=== PATIENT | male | born 1950 | race Caucasian/White ===

== ENCOUNTER 2022-08-04 10:02 | Inpatient (IN) | payer OTHER ==
[~2022-08-04] VITALS: Ht 180.3 cm; Wt 104.3 kg
[2022-08-04 10:02] VITALS: BP_SYST 152
[2022-08-04] MEDS ORDERED: INSU100V9 SQ (10:19)
[2022-08-04] MEDS ORDERED: ASPI-1155 PO (10:19)
[2022-08-04] MEDS ORDERED: LISI10TA29 PO (10:19)
[2022-08-04] MEDS ORDERED: AMLO5TAB4 PO (10:19)
[2022-08-04] MEDS ORDERED: LOVA20TA2 PO (10:19)
[2022-08-04] MEDS ORDERED: INSU100V SQ (10:19)
[2022-08-04] MEDS ORDERED: MULT-1117 PO (10:19)
[2022-08-04 10:57] LABS: BASOPHILS # (AUTO) 0.1 K/uL (0.0-0.2); BASOPHILS % (AUTO) 0.4 % (0.0-2.0); EOSINOPHILS % (AUTO) 0.2 % (0.0-4.0); HEMATOCRIT 40.1 % (36-54); HEMOGLOBIN 14.1 g/dL (14.0-18.0); LYMPHOCYTES # (AUTO) 0.8 K/uL (1.0-5.5); LYMPHOCYTES % (AUTO) 4.8 % (20.5-51.5); MEAN CORPUSCULAR HEMOGLOBIN 34 pg (27-31); MEAN CORPUSCULAR HGB CONC 35 % (32-36); MEAN CORPUSCULAR VOLUME 98 fL (79.0-98.0); MONOCYTES # (AUTO) 1.7 K/uL (0.0-1.0); MONOCYTES % (AUTO) 9.7 % (1.7-9.3); NEUTROPHILS # (AUTO) 14.9 K/uL (1.8-7.7); NEUTROPHILS % (AUTO) 84.9 % (40.0-70.0); RED BLOOD CELL COUNT(AUTO) 4.09 MIL/uL (4.2-6.2); RED CELL DISTRIBUTION WIDTH 13.1 % (9.0-15.0); WHITE BLOOD COUNT (AUTO) 17.5 K/uL (4.8-10.8)
[2022-08-04 11:01] LABS: ANION GAP 13 (5-15); CALCIUM 9.3 mg/dL (8.4-11.0); CHLORIDE 101 mmol/L (98-107); CREATININE 1.46 mg/dL (0.55-1.30); GLUCOSE 194 mg/dL (70-99); UREA NITROGEN, BLOOD 30 mg/dL (8-21)
[2022-08-04 11:05] LABS: INR 1.1 (0.80-1.20); PROTHROMBIN TIME 11.5 SECS (9.5-12.5)
[2022-08-04 11:08] LABS: ALANINE AMINOTRANSFERASE 29 U/L (12-78); ALBUMIN 4.3 g/dL (3.4-4.8); ASPARTATE AMINOTRANSFERASE 38 U/L (10-37); TOTAL BILIRUBIN 1.4 mg/dL (0.0-1.0)
[2022-08-04 11:20] LABS: BILIRUBIN,URINE NEGATIVE (NEGATIVE); BLOOD, URINE 2+ (NEGATIVE); CLARITY/URINE CLEAR (CLEAR); COLOR,URINE YELLOW (YELLOW); GLUCOSE,URINE NEGATIVE (NEGATIVE); KETONES,URINE 1+ (NEGATIVE); LEUKOCYTE ESTERASE ,URINE NEGATIVE (NEGATIVE); NITRITE, URINE NEGATIVE (NEGATIVE); PH,URINE 5.5 (5.0-8.0); PROTEIN URINE 1+ (NEGATIVE); UROBILINOGEN,URINE 0.2 (0.2-1.0)
[2022-08-04 11:21] LABS: PLATELET COUNT (AUTO) 187 K/uL (130-430)
[2022-08-04 12:06] LABS: BACTERIA,URINE FEW /HPF (None Seen); RBC,URINE 20-50 /HPF (0-3); WBC,URINE 0-3 /HPF (0-3)
[2022-08-04 12:44] LABS: CKMB RELATIVE INDEX 1.1 (0.0-2.9); CREATINE KINASE MB 8.4 ng/mL (0-3.6)
[2022-08-04] MEDS ORDERED: D5W 1,000 ML IV PRN (13:00)
[2022-08-04] MEDS ORDERED: GLUCOSE (DEXTROSE) ORAL GEL -Adults PO PRN (13:00)
[2022-08-04] MEDS ORDERED: ONDANSETRON HCL 4 MG/2 ML VIAL IVP PRN (13:00)
[2022-08-04] MEDS ORDERED: MORPHINE 2 MG/ML INJ. SYRINGE IVP PRN (13:00)
[2022-08-04] MEDS ORDERED: DEXTROSE 50% JECT 50 ML DISP.SYRIN IVP PRN (13:00)
[2022-08-04 16:00] VITALS: BP_SYST 149
[2022-08-04] MEDS: NACL 0.9% 1,000 ML IV SCH ×2 (16:58→22:22)
[2022-08-04] MEDS: cefTRIAXone 1 GM IVPB PREMIX 50 ML IV SCH (18:08)
[2022-08-04 18:18] VITALS: BP_SYST 146
[2022-08-04 20:26] VITALS: BP_SYST 131
[2022-08-05 01:01] VITALS: BP_SYST 126
[2022-08-05 06:29] LABS: ANION GAP 9 (5-15); CALCIUM 8.7 mg/dL (8.4-11.0); CHLORIDE 104 mmol/L (98-107); CREATININE 1.55 mg/dL (0.55-1.30); GLUCOSE 150 mg/dL (70-99); UREA NITROGEN, BLOOD 32 mg/dL (8-21)
[2022-08-05 06:30] LABS: BASOPHILS % (AUTO) 0.1 % (0.0-2.0); EOSINOPHILS # (AUTO) 0.1 K/uL (0.0-0.4); EOSINOPHILS % (AUTO) 1.1 % (0.0-4.0); HEMATOCRIT 35.8 % (36-54); HEMOGLOBIN 12.9 g/dL (14.0-18.0); LYMPHOCYTES # (AUTO) 1.2 K/uL (1.0-5.5); LYMPHOCYTES % (AUTO) 9.6 % (20.5-51.5); MEAN CORPUSCULAR HEMOGLOBIN 35 pg (27-31); MEAN CORPUSCULAR HGB CONC 36 % (32-36); MEAN CORPUSCULAR VOLUME 98 fL (79.0-98.0); MONOCYTES # (AUTO) 1.8 K/uL (0.0-1.0); MONOCYTES % (AUTO) 13.7 % (1.7-9.3); NEUTROPHILS # (AUTO) 9.8 K/uL (1.8-7.7); PLATELET COUNT (AUTO) 161 K/uL (130-430); RED BLOOD CELL COUNT(AUTO) 3.66 MIL/uL (4.2-6.2); RED CELL DISTRIBUTION WIDTH 13.2 % (9.0-15.0); WHITE BLOOD COUNT (AUTO) 12.9 K/uL (4.8-10.8)
[2022-08-05 06:35] LABS: ALANINE AMINOTRANSFERASE 25 U/L (12-78); ALBUMIN 3.7 g/dL (3.4-4.8); ASPARTATE AMINOTRANSFERASE 32 U/L (10-37); TOTAL BILIRUBIN 0.8 mg/dL (0.0-1.0)
[2022-08-05 08:03] VITALS: BP_SYST 136
[2022-08-05 08:48] LABS: CKMB RELATIVE INDEX 0.8 (0.0-2.9); CREATINE KINASE MB 3.7 ng/mL (0-3.6)
[2022-08-05] MEDS: ENOXAPARIN SODIUM 30 MG/0.3 ML SYRINGE SUBCUT SCH (09:14)
[2022-08-05] MEDS: NACL 0.9% 1,000 ML IV SCH ×2 (09:18→17:04)
[2022-08-05 11:28] VITALS: BP_SYST 131
[2022-08-05] MEDS: INSULIN LISPRO SLIDING SCALE 100 UNITS/ML, 3 ML VIAL (humaLOG) SUBCUT PRN ×2 (12:01→17:21)
[2022-08-05 12:22] LABS: NEUTROPHILS % (AUTO) 75.5 % (40.0-70.0)
[2022-08-05 15:27] VITALS: BP_SYST 142
[2022-08-05] MEDS: cefTRIAXone 1 GM IVPB PREMIX 50 ML IV SCH (17:06)
[2022-08-05 20:00] VITALS: BP_SYST 144
[2022-08-06] VITALS: BP_SYST 138
[2022-08-06] MEDS: NACL 0.9% 1,000 ML IV SCH ×2 (02:28→11:35)
[2022-08-06 08:24] VITALS: BP_SYST 141
[2022-08-06 08:37] LABS: ANION GAP 11 (5-15); CHLORIDE 105 mmol/L (98-107); CREATININE 1.28 mg/dL (0.55-1.30); GLUCOSE 149 mg/dL (70-99); UREA NITROGEN, BLOOD 27 mg/dL (8-21)
[2022-08-06] MEDS: ENOXAPARIN SODIUM 30 MG/0.3 ML SYRINGE SUBCUT SCH (08:57)
[2022-08-06 09:14] LABS: BASOPHILS % (AUTO) 0.5 % (0.0-2.0); EOSINOPHILS # (AUTO) 0.3 K/uL (0.0-0.4); EOSINOPHILS % (AUTO) 3.2 % (0.0-4.0); HEMATOCRIT 38.6 % (36-54); HEMOGLOBIN 13.7 g/dL (14.0-18.0); LYMPHOCYTES # (AUTO) 0.9 K/uL (1.0-5.5); LYMPHOCYTES % (AUTO) 12.1 % (20.5-51.5); MEAN CORPUSCULAR HEMOGLOBIN 35 pg (27-31); MEAN CORPUSCULAR HGB CONC 35 % (32-36); MEAN CORPUSCULAR VOLUME 98 fL (79.0-98.0); MONOCYTES # (AUTO) 0.9 K/uL (0.0-1.0); MONOCYTES % (AUTO) 11.5 % (1.7-9.3); NEUTROPHILS # (AUTO) 5.7 K/uL (1.8-7.7); NEUTROPHILS % (AUTO) 72.7 % (40.0-70.0); PLATELET COUNT (AUTO) 147 K/uL (130-430); RED BLOOD CELL COUNT(AUTO) 3.93 MIL/uL (4.2-6.2); RED CELL DISTRIBUTION WIDTH 13.2 % (9.0-15.0)
[2022-08-06 09:17] LABS: WHITE BLOOD COUNT (AUTO) 7.8 K/uL (4.8-10.8)
[2022-08-06] MEDS: INSULIN LISPRO SLIDING SCALE 100 UNITS/ML, 3 ML VIAL (humaLOG) SUBCUT PRN (11:18)
[2022-08-06 12:00] VITALS: BP_SYST 147
[2022-08-06 13:57] LABS: CREATININE 1.28 mg/dL (0.55-1.30); PATIENT WEIGHT 230 LBS
[2022-08-06 16:20] VITALS: BP_SYST 131
[2022-08-06 17:06] VITALS: BP_SYST 131
[2022-08-06 17:39] LABS: CREATININE CLEARANCE,URINE 54.9 ml/min (80-120); CREATININE,URINE 42.9 MG/DL (30-125); TOTAL VOLUME 24HRS,URINE 3000 mL
== END 2022-08-06 18:20 | disposition home health service (06) | DRG 682 ==
LOC: SED 10:02 → STU 12:52 → SMU 15:46
PROVIDERS: ADMIT Family Medicine; ATTEND Family Medicine
DX: N17.0 Acute kidney failure with tubular necrosis (principal); R65.11 Systemic inflammatory response syndrome (SIRS) of non-infectious origin with acute organ dysfunction; M62.82 Rhabdomyolysis; E86.0 Dehydration; M25.552 Pain in left hip; I12.9 Hypertensive chronic kidney disease with stage 1 through stage 4 chronic kidney disease, or unspecified chronic kidney disease; E11.21 Type 2 diabetes mellitus with diabetic nephropathy; Z20.822 Contact with and (suspected) exposure to COVID-19; E11.22 Type 2 diabetes mellitus with diabetic chronic kidney disease; N18.31 Chronic kidney disease, stage 3a; Z79.82 Long term (current) use of aspirin; Z79.899 Other long term (current) drug therapy; W18.30XA Fall on same level, unspecified, initial encounter
CPT/HCPCS: 36415; 71045; 72100-TC; 73502; 73700-TC; 76376; 76770; 80048; 80053; 81000; 82550; 82553; 82575; 83605; 83874; 84484; 85025; 85610-TC; 87040; 87086; 93005; 97110-GP; 97116-GP; 97530-GP; 99285; G0378; J0696; J1650